=== PATIENT | female | born 1950 | race American Indian/Alaskan Native ===

== ENCOUNTER 2018-12-14 20:09 | Inpatient (IN) | payer MEDICARE, OTHER ==
--- NOTE | 2018-12-15 00:58 | XRay Report ---
PROCEDURE: XR CHEST 1V AP TECHNIQUE: Chest radiograph single view. HISTORY: weakness COMPARISONS: None . FINDINGS: Heart: Normal. Mediastinum/Vessels: Normal. Lungs/Pleural space: Normal. Bony thorax: No acute osseous abnormality. Life support devices: None. IMPRESSION: No acute cardiopulmonary abnormality. This document is electronically signed by Gabriella Centeno DO., December 15 2018 12:56:02 AM ET
[2018-12-15 01:37] LABS: Partial Thromboplastin Time 133.5 Sec. (24.2-36.6)
[2018-12-15 01:44] LABS: Bilirubin,Urine NEG (Negative); Blood,Urine NEG (Negative); Color,Urine Yellow (Yellow); Protein,Urine <15 mg/dL mg/dL (Negative); Urobilinogen,Urine < 2.0 mg/dL (<2.0); WBC,Urine < 1.0 /HPF (0.0-6.0)
[2018-12-15 01:44] LABS: INR TNR (0.87-1.13)
[2018-12-15 01:48] LABS: Basophils # (Auto) 0.1 K/mm3 (0.0-0.1); Basophils % (Auto) 0.8 % (0.0-1.8); Eosinophils # (Auto) 0.1 K/mm3 (0.0-0.4); Eosinophils % (Auto) 1.5 % (0.0-4.3); Hemoglobin 13.2 gm/dl (10.1-14.3); Lymphocytes # (Auto) 1.8 K/mm3 (1.2-5.4); Lymphocytes % (Auto) 26.7 % (13.4-35.0); Mean Corpuscular HGB Conc 33 % (30-34); Mean Corpuscular Volume 95 fl (79-97); Monocytes # (Auto) 0.7 K/mm3 (0.0-0.8); Monocytes % (Auto) 10.5 % (0.0-7.3); Red Blood Count 4.19 M/mm3 (3.65-5.03)
[2018-12-15 01:51] LABS: Alanine Aminotransferase 18 units/L (7-56); Albumin 4.5 g/dL (3.9-5); BUN/Creatinine Ratio 23; Blood Urea Nitrogen 18 mg/dL (7-17); Calcium 9.3 mg/dL (8.4-10.2); Hemolysis Index 18
[2018-12-15 01:52] LABS: Platelet Count 223 K/mm3 (140-440)
--- NOTE | 2018-12-15 01:54 | Cat Scan Report ---
PROCEDURE: CT HEAD/BRAIN WO CON TECHNIQUE: Computerized tomography of the head was performed without contrast material. CT DOSE LENGTH PRODUCT: mGycm HISTORY: dizziness, off balance, CRUZ COMPARISONS: None . FINDINGS: Skull and scalp: Normal . Paranasal sinuses: Normal . Ventricles and subarachnoid spaces: Normal . Cerebrum: No evidence of hemorrhage, acute infarction or mass . Cerebellum and brainstem: No evidence of hemorrhage, acute infarction or mass . Vasculature: Normal . IMPRESSION: Normal Examination . This document is electronically signed by Samy Ward MD., December 15 2018 01:52:40 AM ET
[2018-12-15] MEDS ORDERED: ANTIVERT PO ONE (02:50)
[2018-12-15 03:16] LABS: INR 0.93 (0.87-1.13)
--- NOTE | 2018-12-15 03:52 | Emergency Department Report ---
ED Dizziness HPI - General Chief Complaint: Dizziness Stated Complaint: HEADACHE/EYE PAIN Time Seen by Provider: 12/15/18 00:11 Source: patient Mode of arrival: Ambulatory Limitations: No Limitations - History of Present Illness Initial Comments: 68-year-old female presents to ED with dizziness, feeling off-balance for 1-1/2 weeks. Patient also reports associated mild frontal and posterior headache, blurred vision. Patient denies nausea or vomiting. States feels as if she is drunk when she is walking. PCP: Dr Misha Leigh MD Complaint: dizziness -: days(s) (10) Timing: constant Description: off-balance History of Same: No History of Trauma: No Severity: moderate Improves With: nothing Worsens With: nothing Associated Symptoms: ataxia. denies: chest pain, fever/chills, shortness of breath, syncope, weakness - Related Data Home Medications Medication Instructions Recorded Confirmed Last Taken Aspirin [Aspirin BABY CHEW TAB] 81 mg PO DAILY 06/23/13 11/03/13 11/04/13 Pravastatin Sodium [Pravastatin] 10 mg PO QHS 06/23/13 11/03/13 11/06/13 cloNIDine [Catapres] 0.1 mg PO DAILY 06/23/13 11/03/13 11/08/13 23:30 ALBUTEROL Inhaler (OR & NICU) 2 puff IH QID PRN 11/03/13 11/03/13 11/09/13 08:00 [Proair] Biotin 1 mg PO DAILY 11/03/13 11/03/13 11/04/13 Hydroxychloroquine [Plaquenil] 200 mg PO QDAY 11/03/13 11/03/13 11/06/13 NIFEdipine [Nifedipine ER] 60 mg PO DAILY 11/03/13 11/03/13 11/08/13 23:30 Prednisone [predniSONE 5 mg (6-Day 5 mg PO QDAY 11/03/13 11/03/13 11/06/13 Pack, 21 Tabs)] Previous Rx's Medication Instructions Recorded Last Taken Type traMADol [Ultram 50 MG tab] 50 mg PO Q6HR PRN #20 tablet 06/24/13 11/04/13 Rx metFORMIN [Glucophage] 500 mg PO BIDDIAB #60 tablet 11/11/13 Unknown Rx Enoxaparin [Lovenox] 40 mg SQ QDAY #14 syringe 11/12/13 Unknown Rx Oxycodone HCl/Acetaminophen 1 each PO Q6HR PRN #60 tablet 11/12/13 Unknown Rx [Percocet 7.5-325 mg] Allergies Allergy/AdvReac Type Severity Reaction Status Date / Time sulfamethoxazole Allergy Rash Verified 11/09/13 09:36 [From Bactrim] trimethoprim [From Bactrim] Allergy Rash Verified 11/09/13 09:36 ED Review of Systems ROS: Stated complaint: HEADACHE/EYE PAIN Other details as noted in HPI Comment: All other systems reviewed and negative Constitutional: denies: chills, fever Eyes: vision change Respiratory: denies: shortness of breath Cardiovascular: denies: chest pain Gastrointestinal: denies: nausea, vomiting Neurological: headache, abnormal gait ED Past Medical Hx - Past Medical History Hx Hypertension: Yes Hx Congestive Heart Failure: No Hx Diabetes: Yes (BORDERLINE) Hx Liver Disease: No (ELEVATED LIVER ENZYMES) Hx Renal Disease: Yes (INSUFFICIENCY SECONDARY TO LUPUS) Hx of Cancer: Yes ([id number], breast l't 2001) Hx Arthritis: Yes Hx Asthma: Yes Hx COPD: Yes Additional medical history: lupus - Surgical History Past Surgical History?: Yes Additional Surgical History: colon S/P, L't breast, hysterectomy - Social History Smoking Status: Never Smoker Substance Use Type: None - Medications Home Medications: Home Medications Medication Instructions Recorded Confirmed Last Taken Type Aspirin [Aspirin BABY CHEW TAB] 81 mg PO DAILY 06/23/13 11/03/13 11/04/13 His tory Pravastatin Sodium [Pravastatin] 10 mg PO QHS 06/23/13 11/03/13 11/06/13 History cloNIDine [Catapres] 0.1 mg PO DAILY 06/23/13 11/03/13 11/08/13 23:30 History traMADol [Ultram 50 MG tab] 50 mg PO Q6HR PRN #20 tablet 06/24/13 11/03/13 11/04/13 Rx ALBUTEROL Inhaler (OR & NICU) 2 puff IH QID PRN 11/03/13 11/03/13 11/09/13 08:00 History [Proair] Biotin 1 mg PO DAILY 11/03/13 11/03/13 11/04/13 History Hydroxychloroquine [Plaquenil] 200 mg PO QDAY 11/03/13 11/03/13 11/06/13 History NIFEdipine [Nifedipine ER] 60 mg PO DAILY 11/03/13 11/03/13 11/08/13 23:30 History Prednisone [predniSONE 5 mg (6-Day 5 mg PO QDAY 11/03/13 11/03/13 11/06/13 History Pack, 21 Tabs)] metFORMIN [Glucophage] 500 mg PO BIDDIAB #60 tablet 11/11/13 Unknown Rx Enoxaparin [Lovenox] 40 mg SQ QDAY #14 syringe 11/12/13 Unknown Rx Oxycodone HCl/Acetaminophen 1 each PO Q6HR PRN #60 tablet 11/12/13 Unknown Rx [Percocet 7.5-325 mg] ED Physical Exam - General Limitations: No Limitations General appearance: alert, in no apparent distress - Head Head exam: Present: atraumatic, normocephalic - Eye Eye exam: Present: normal appearance, PERRL, EOMI. Absent: nystagmus - ENT ENT exam: Present: mucous membranes moist - Neck Neck exam: Present: normal inspection - Respiratory Respiratory exam: Present: normal lung sounds bilaterally. Absent: respiratory distress - Cardiovascular Cardiovascular Exam: Present: regular rate, normal rhythm - GI/Abdominal GI/Abdominal exam: Present: soft. Absent: distended, tenderness - Extremities Exam Extremities exam: Present: normal inspection - Neurological Exam Neurological exam: Present: alert, oriented X3, CN II-XII intact, abnormal gait, other (dpxary-ea-hadj, [id number]-gm-[id number] nml; NIHSS score = 0). Absent: motor sensory deficit - Psychiatric Psychiatric exam: Present: normal affect, normal mood - Skin Skin exam: Present: warm, dry, intact, normal color. Absent: rash ED Course Vital Signs 12/14/18 12/15/18 12/15/18 21:32 00:00 02:00 Temperature 97.7 F 98.2 F Pulse Rate 65 65 62 Respiratory 16 21 Rate Blood Pressure 141/82 144/91 Blood Pressure 139/87 [Right] O2 Sat by Pulse 98 99 Oximetry ED Medical Decision Making - Lab Data Result diagrams: 12/15/18 00:47 12/15/18 00:47 - EKG Data -: EKG Interpreted by Me EKG shows normal: sinus rhythm, axis, intervals, QRS complexes, ST-T waves Rate: normal - EKG Data Interpretation: no acute changes - Radiology Data Radiology results: report reviewed - Differential Diagnosis CVA, benign positional vertigo, brain mass Critical care attestation.: If time is entered above; I have spent that time in minutes in the direct care of this critically ill patient, excluding procedure time. ED Disposition Clinical Impression: Dizziness Disposition: OP ADMIT IP TO THIS HOSP Is pt being admited?: Yes Condition: Stable Referrals: LENA ALLEN MD [Primary Care Provider] - 3-5 Days Time of Disposition: 03:52
[2018-12-15] MEDS ORDERED: TYLENOL PO PRN (04:18)
[2018-12-15] MEDS ORDERED: SODIUM CHLORIDE FLUSH SYRINGE 10 ML IV PRN (04:18)
[2018-12-15] MEDS ORDERED: ZOFRAN IV PRN (04:18)
[2018-12-15] MEDS ORDERED: D50W (25GM) Syringe IV PRN (04:18)
--- NOTE | 2018-12-15 04:29 | History and Physical Report ---
History of Present Illness Date of examination: 12/15/18 History of present illness: 68-year-old woman with a history of hypertension, diabetes, colon cancer and breast cancer comes emergency room complaining of dizziness 1-1/2 weeks. She states that sometimes she loses her balance, also complaining of headache, nause a. Headache is frontal, occipital, dull, constant, no radiation, no tinnitus Review of systems Constitutional: no weight loss, chills, fever Ears, eyes, nose, mouth and throat: no nasal congestion, no nasal discharge, no sinus pressure, no vision change, no red eye. Neck: No neck pain or rigidity. Cardiovascular: no palpitations, chest pain Respiratory: no cough, shortness of breath Gastrointestinal: no hematochezia, abdominal pain Genitourinary : no frequency , no hematuria Musculoskeletal: no joint swelling or muscle ache Integumentary: no rash, no pruritis Neurological: no parathesias, no focal weakness Endocrine: no cold or heat intolerance, no polyuria or polydipsia Hematologic/Lymphatic: no easy bruising, no easy bleeding, no gland swelling Allergic/Immunologic: no urticaria, no angioedema. PPAST MEDICAL HISTORY:hypertension, diabetes, colon cancer and breast cancer PAST SURGICAL HISTORY: Hysterectomy, left mastectomy, hard of colon excision SOCIAL HISTORY: Denies alcohol, drugs, tobacco FAMILY HISTORY: Hypertension Medications and Allergies Allergies Allergy/AdvReac Type Severity Reaction Status Date / Time sulfamethoxazole Allergy Rash Verified 12/15/18 07:40 [From Bactrim] trimethoprim [From Bactrim] Allergy Rash Verified 12/15/18 07:40 Home Medications Medication Instructions Recorded Confirmed Last Taken Type Aspirin [Aspirin BABY CHEW TAB] 81 mg PO DAILY 06/23/13 12/15/18 12/15/18 07:14 History cloNIDine [Catapres] 0.1 mg PO DAILY 06/23/13 12/15/18 12/14/18 History traMADol [Ultram 50 MG tab] 50 mg PO Q6HR PRN #20 tablet 06/24/13 12/15/18 12/14/18 Rx ALBUTEROL Inhaler (OR & NICU) 2 puff IH QID PRN 11/03/13 12/15/18 12/14/18 History [ProAir HFA Inhaler] Biotin 0.5 mg PO DAILY 11/03/13 12/15/18 12/14/18 History NIFEdipine [NIFEdipine ER] 60 mg PO DAILY 11/03/13 12/15/18 12/14/18 History Folic Acid 800 mcg PO DAILY 12/15/18 12/15/18 12/14/18 History Ranitidine HCl [Zantac 150 MG TAB] 150 mg PO QHS 12/15/18 12/15/18 Unknown History metHOTREXate(DOSE WEEKLY ONLY) 7.5 mg PO QWEEK 12/15/18 12/15/18 12/13/18 History [metHOTREXate (DOSE WEEKLY ONLY)] Meclizine [Antivert] 25 mg PO Q6H PRN #20 tablet 12/16/18 Unknown Rx Active Meds: Active Medications Acetaminophen (Tylenol) 650 mg PO Q4H PRN PRN Reason: Pain MILD(1-3)/Fever >100.5/CRUZ Dextrose (D50w (25gm) Syringe) 50 ml IV PRN PRN PRN Reason: Hypoglycemia Enoxaparin Sodium (Lovenox) 30 mg SUB-Q QDAY YOVANY Insulin Human Lispro (Humalog) 0 unit SUB-Q ACHS YOVANY; Protocol Meclizine HCl (Antivert) 25 mg PO Q6H YOVANY Ondansetron HCl (Zofran) 4 mg IV Q4H PRN PRN Reason: Nausea And Vomiting Sodium Chloride (Sodium Chloride Flush Syringe 10 Ml) 10 ml IV BID YOVANY Sodium Chloride (Sodium Chloride Flush Syringe 10 Ml) 10 ml IV PRN PRN PRN Reason: LINE FLUSH Exam - Physical Exam Narrative exam: General Apperance: The patient lying in bed, breathing comfortable HEENT: Normocephalic, atraumatic. Pupils equally round and reactive to light, EOMI, no sclericterus or JVD or thyromegaly or nodule. , no carotid bruit, mucous membranes moist, no exudate or erythema Heart: S1-S2, regular is rhythm Lungs: Clear to auscultation bilaterally, breathing comfortable Abdomen: Positive bowel sounds, soft, nontender, nondistended, no organomegaly Extremities: No edema cyanosis clubbing Skin: no rash, nodule, warm and dry Neuro: cranial nerves 2-12 intact, speech is fluent, motor/sensory intact - Constitutional Vitals: Temp Pulse Resp BP Pulse Ox 98.2 F 62 21 139/87 99 12/15/18 02:00 12/15/18 02:00 12/15/18 00:00 12/15/18 02:00 12/15/18 00:00 Results - Labs CBC & Chem 7: 12/16/18 Unknown 12/16/18 Unknown Labs: Abnormal lab results 12/15/18 12/15/18 12/15/18 Range/Units 00:47 00:47 01:08 [place] % (Auto) 10.5 H (0.0-7.3) % APTT 133.5 H* (24.2-36.6) Sec. BUN 18 H (7-17) mg/dL - Imaging and Cardiology EKG: image reviewed Chest x-ray: report reviewed CT Scan - head: report reviewed Assessment and Plan Assessment Dizziness hypertension diabetes colon cancer and breast cancer Plan Admit to medicine Start Meclizine, consult neurology DVT prophylaxis
[2018-12-15] MEDS: HumaLOG SUB-Q SCH ×3 (07:20→16:53)
[2018-12-15] MEDS: ANTIVERT PO SCH ×2 (07:24→13:46)
--- NOTE | 2018-12-15 09:08 | Event Note ---
Date: 12/15/18 Patient seen and examined this am, she has clinically improved. she has not gotten out of bed yet but no nystagmus noted. Due to age, will add MRI to rule out any occult mass. If patient continues to improve will treat for BPPV and discharge in am.
[2018-12-15] MEDS: SODIUM CHLORIDE FLUSH SYRINGE 10 ML IV SCH (09:21)
[2018-12-15] MEDS: LOVENOX SUB-Q SCH (09:22)
[2018-12-15] MEDS ORDERED: LOVENOX SUB-Q SCH (10:00)
--- NOTE | 2018-12-15 14:29 | Consultation ---
History of Present Illness Consult date: 12/15/18 Requesting physician: GAURAV BLACKMAN Reason for Consult: Dizziness History of present illness: 68 year old female with history of diabetes, hypertension, colon cancer and breast cancer, presented to with complaints of dizziness, a feeling of imbalance or tendency to fall. She felt very unsteady while walking. At the same time she noted blurry vision and headache, frontal especially, and nausea.There was no chest pain or palpitations She has not felt like this before. She denied weaknes or numbness of the extremities. She has had no recent viral or flu syndrome. She noted the dizziness to be provoked by standing especially. While sitting or turning in bed, she had no symptoms. Past History Past Medical History: cancer, diabetes, hyperthyroidism Past Surgical History: Other (colon resection) Medications and Allergies Allergies Allergy/AdvReac Type Severity Reaction Status Date / Time sulfamethoxazole Allergy Rash Verified 12/15/18 07:40 [From Bactrim] trimethoprim [From Bactrim] Allergy Rash Verified 12/15/18 07:40 Home Medications Medication Instructions Recorded Confirmed Last Taken Type Aspirin [Aspirin BABY CHEW TAB] 81 mg PO DAILY 06/23/13 12/15/18 12/15/18 07:14 History cloNIDine [Catapres] 0.1 mg PO DAILY 06/23/13 12/15/18 12/14/18 History traMADol [Ultram 50 MG tab] 50 mg PO Q6HR PRN #20 tablet 06/24/13 12/15/18 12/14/18 Rx ALBUTEROL Inhaler (OR & NICU) 2 puff IH QID PRN 11/03/13 12/15/18 12/14/18 History [Proair] Biotin 0.5 mg PO DAILY 11/03/13 12/15/18 12/14/18 History NIFEdipine [Nifedipine ER] 60 mg PO DAILY 11/03/13 12/15/18 12/14/18 History Prednisone [predniSONE 5 mg (6-Day 5 mg PO 4XW 11/03/13 12/15/18 12/14/18 History Pack, 21 Tabs)] Folic Acid 800 mcg PO DAILY 12/15/18 12/15/18 12/14/18 History Ranitidine HCl [Zantac 150 MG TAB] 150 mg PO QHS 12/15/18 12/15/18 Unknown History metHOTREXate(DOSE WEEKLY ONLY) 7.5 mg PO QWEEK 12/15/18 12/15/18 12/13/18 History [metHOTREXate (DOSE WEEKLY ONLY)] Active Meds: Active Medications Acetaminophen (Tylenol) 650 mg PO Q4H PRN PRN Reason: Pain MILD(1-3)/Fever >100.5/CRUZ Dextrose (D50w (25gm) Syringe) 50 ml IV PRN PRN PRN Reason: Hypoglycemia Enoxaparin Sodium (Lovenox) 40 mg SUB-Q QDAY@1000 [facility] Last Admin: 12/15/18 09:22 Dose: 40 mg Documented by: Insulin Human Lispro (Humalog) 0 unit SUB-Q ACHS [facility]; Protocol Last Admin: 12/15/18 11:23 Dose: Not Given Documented by: Meclizine HCl (Antivert) 25 mg PO Q6H [facility] Last Admin: 12/15/18 13:46 Dose: 25 mg Documented by: Ondansetron HCl (Zofran) 4 mg IV Q4H PRN PRN Reason: Nausea And Vomiting Sodium Chloride (Sodium Chloride Flush Syringe 10 Ml) 10 ml IV BID [facility] Last Admin: 12/15/18 09:21 Dose: Not Given Documented by: Sodium Chloride (Sodium Chloride Flush Syringe 10 Ml) 10 ml IV PRN PRN PRN Reason: LINE FLUSH Review of Systems Constitutional: no weight loss, no fever, no chills, no weakness, no chronic headaches Ears, nose, mouth and throat: sinus pain, headache, no tinnitis, no decreased hearing Cardiovascular: lightheadedness, no chest pain, no orthopnea, no palpitations, no rapid/irregular heart beat, no edema, no syncope, no shortness of breath Respiratory: no cough, no cough with sputum, no excessive sputum, no shortness of breath, no dyspnea on exertion Gastrointestinal: no abdominal pain, no nausea, no vomiting, no diarrhea, no constipation Genitourinary Female: no pelvic pain, no flank pain, no dysuria, no urinary frequency, no urgency, no stress incontinence Musculoskeletal: no neck stiffness, no neck pain, no arm numbness/tingling, no low back pain, no leg numbness/tingling Integumentary: no rash, no pruritis Neurological: ataxia, lack of coordination, headaches, gait dysfunction, no numbness, no tingling, no seizures, no syncope Physical Examination - Vital Signs Vital Signs: Vital Signs Temp Pulse Resp BP Pulse Ox 97.7 F 65 16 141/82 98 12/14/18 21:32 12/14/18 21:32 12/14/18 21:32 12/14/18 21:32 12/14/18 21:32 - Physical Exam Narrative exam: General - Resting comfortably in bed. No dstress. 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 Face symmetric, tongue midline, hearing intact. Motor - 5/5 throughout. Reflexes - trace throughout. Sensory - intact to touch and pin. Cerebellar - FTN, Mickie, FFM intact. ambulated with PT today. Results - Laboratory Findings CBC and BMP: 12/15/18 00:47 12/15/18 00:47 Abnormal Lab Findings: Abnormal Labs 12/15/18 12/15/18 12/15/18 00:47 00:47 01:08 [place] % (Auto) 10.5 H APTT 133.5 H* BUN 18 H Assessment and Plan 68 year old female with hx of htn., diabetes, colon and breast cancer, presented with history of dizziness described as a sense of imbalance and risk of fall when walking. She also noted a sense of lightheadedness. This only happened when getting into a standing position, not when rolling over in bed or sitting at the bedside. She was provided Meclizine which has helped. What she describes is not really verigo, therefore we will check an MRI brain to evaluate for ischemic disease in the post. fossa. Plan - MRI scan ordered. Continue Meclizine.
--- NOTE | 2018-12-15 18:49 | Magnetic Resonance Report ---
PROCEDURE: MR BRAIN W CON TECHNIQUE: T1 and T2-weighted sagittal, axial and diffusion-weighted images of the brain and followi ng administration of IV contrast T1-weighted axial and coronal images of the brain were obtained. HISTORY: dizziness COMPARISONS: Head CT performed earlier today. FINDINGS: There are a few small scattered T2 signal abnormalities in the subcortical and deep white matter of t he frontal and parietal lobes that are nonspecific in appearance. There is no diffusion abnormality to suggest the presence of acute infarct. There are no areas of abnormal enhancement to suggest the presence of an acute inflammatory process o r acute demyelination. There is no evidence of intracranial mass. The ventricles are normal size. Expected flow void is demonstrated within the major intracranial vessels. The extracranial structures are notable for [id number] left frontal sinus mucosal thickening. The craniocervical junction is notable for mild tonsillar descent below the foramen magnum of approxi mately 2 mm. This is within normal limits. IMPRESSION: 1. Small scattered T2 signal abnormalities in the subcortical and deep white matter of the frontal an d parietal lobes that are nonspecific in appearance but may represent chronic postischemic or chronic post inflammatory change or areas of chronic demyelination, etiology indeterminate. These can be see n in patients with a history of migraine headaches. There is no evidence of acute infarct, acute inflammatory process or acute demyelination. This document is electronically signed by Pauly Sheridan MD., December 15 2018 06:47:16 PM ET
[2018-12-16] MEDS: ANTIVERT PO SCH ×4 (00:08→13:42)
[2018-12-16] MEDS: HumaLOG SUB-Q SCH ×3 (00:09→11:20)
[2018-12-16 05:34] LABS: Hematocrit 41.2 % (30.3-42.9); Hemoglobin 13.7 gm/dl (10.1-14.3); Mean Corpuscular HGB Conc 33 % (30-34); Mean Corpuscular Volume 93 fl (79-97); Red Blood Count 4.42 M/mm3 (3.65-5.03); Red Cell Distribution Width 13.8 % (13.2-15.2)
[2018-12-16 05:49] LABS: BUN/Creatinine Ratio 20; Blood Urea Nitrogen 14 mg/dL (7-17); Calcium 8.8 mg/dL (8.4-10.2); Hemolysis Index 124
[2018-12-16 06:27] LABS: Total Cells Counted 100
[2018-12-16 06:28] LABS: Ovalocytes Rare; Platelet Estimate Consistent w Auto; Poikilocytosis Few
[2018-12-16 06:29] LABS: Platelet Count 164 K/mm3 (140-440)
[2018-12-16] MEDS: SODIUM CHLORIDE FLUSH SYRINGE 10 ML IV SCH ×2 (08:02→09:18)
[2018-12-16 08:13] VITALS: BP 145/78
--- NOTE | 2018-12-16 09:02 | Discharge Summary ---
Providers - Providers Date of Admission: 12/15/18 04:18 Attending physician: GAURAV BLACKMAN MD 12/15/18 04:18 Consult to Physician [CONS] Routine Comment: Consulting Provider: HATTIE MONIQUE Physician Instructions: Reason For Exam: dizziness 12/15/18 07:28 Physical Therapy Evaluation and Treat [CONS] Routine Comment: Reason For Exam: weakness [facility] Reason for admission: DIZZINESS Condition: Stable Hospital course: Patient is a 68-year-old female with a history of hypertension, diabetes, colon cancer and breast cancer comes emergency room complaining of dizziness 1-1/2 weeks. She states that sometimes she loses her balance, also complaining of headache, nausea. Headache is frontal, occipital, dull, constant, no radiation, no tinnitus on admission the patient received meclizine and Zofran with resolution of her problems. Due to her age she had an ongoing workup also recommended by neurology to get an MRI of the brain to rule out any other occult pathology MRI was unremarkable for any acute pathology MRI BRAIN: IMPRESSION: 1. Small scattered T2 signal abnormalities in the subcortical and deep white matter of the frontal and parietal lobes that are nonspecific in appearance but may represent chronic postischemic or chronic post inflammatory change or areas of chronic demyelination, etiology indeterminate. These can be seen in patients with a history of migraine headaches. There is no evidence of acute infarct, acute inflammatory process or acute demyelination. Discharge Diagnosis: BPPV Hypertension Diabetes Mellitus colon cancer and breast cancer Disposition: TO HOME OR SELFCARE Time spent for discharge: 35 mins Core Measure Documentation - Palliative Care Palliative Care/ Comfort Measures: Not Applicable - Core Measures Any of the following diagnoses?: none Exam - Physical Exam Narrative exam: VITAL SIGNS: Reviewed. GENERAL: The patient appeared well nourished and normally developed, Vital signs as documented. HEAD: No signs of head trauma. EYES: Pupils are equal. Extraocular motions intact. EARS: Hearing grossly intact. MOUTH: Oropharynx is normal. NECK: No adenopathy, no JVD. CHEST: Chest with clear breath sounds bilaterally. No wheezes, rales, or rhonchi. CARDIAC: Regular rate and rhythm. S1 and S2, without murmurs, gallops, or rubs. VASCULAR: No Edema. Peripheral pulses normal and equal in all extremities. ABDOMEN: Soft, non tender and non distended. No rebound or guarding, and no masses palpated. Bowel Sounds normal. MUSCULOSKELETAL: Good range of motion of all major joints. Extremities without clubbing, cyanosis or edema. NEUROLOGIC EXAM: Alert and oriented x 3 No focal sensory or strength deficits. Speech normal. Follows commands. PSYCHIATRIC: Mood normal. SKIN: No rash or lesions. - Constitutional Vitals: Temp Pulse Resp BP Pulse Ox 97.8 F 63 18 145/78 94 12/16/18 08:11 12/16/18 08:11 12/16/18 08:11 12/16/18 08:11 12/16/18 08:11 Plan Activity: advance as tolerated, fall precautions Diet: low fat Special Instructions: record daily weights, record daily BP diary, record blood sugar diary Follow up with: [facility] [Provider Group] - 7 Days Forms: Work/School Release Form Prescriptions: Meclizine [Antivert] 25 mg PO Q6H PRN #20 tablet PRN Reason: Vertigo
[2018-12-16] MEDS: LOVENOX SUB-Q SCH (09:18)
== END 2018-12-16 14:30 | disposition home or self-care (01) | DRG 149 ==
LOC: ED 20:09 → 2B-ACE 12-15 04:18
PROVIDERS: ADMIT Internal Medicine; ATTEND Internal Medicine
DX: H81.10 Benign paroxysmal vertigo, unspecified ear (principal); I10 Essential (primary) hypertension; E11.9 Type 2 diabetes mellitus without complications; G43.909 Migraine, unspecified, not intractable, without status migrainosus; E05.90 Thyrotoxicosis, unspecified without thyrotoxic crisis or storm; J44.9 Chronic obstructive pulmonary disease, unspecified; M19.90 Unspecified osteoarthritis, unspecified site; Z88.2 Allergy status to sulfonamides; Z90.49 Acquired absence of other specified parts of digestive tract; Z90.12 Acquired absence of left breast and nipple; Z85.038 Personal history of other malignant neoplasm of large intestine; Z85.3 Personal history of malignant neoplasm of breast; Z79.82 Long term (current) use of aspirin; Z79.899 Other long term (current) drug therapy; Z90.710 Acquired absence of both cervix and uterus; Z82.49 Family history of ischemic heart disease and other diseases of the circulatory system
CPT/HCPCS: 36415; 70450; 70552; 71045; 80048; 80053; 81001; 82962; 84484; 85007; 85025; 85610; 85730; 87116; 93005; 93010; G0378; A9577; J1650